=== PATIENT | male | born 1985 | race Caucasian/White ===

== ENCOUNTER 2022-03-31 17:20 | Emergency (ER) | payer BC, SELFPAY ==
--- NOTE | 2022-03-31 17:31 | ED_ITS ---
HPI - Allergic Reaction General Chief complaint: Allergic Reaction Stated complaint: ALLERGIC REACTION Time Seen by Provider: 03/31/22 17:31 Source: patient and EMS Mode of arrival: EMS Limitations: no limitations History of Present Illness HPI narrative: 37-year-old male with history of anaphylaxis to bee stings presents after bee sting which occurred approximately 45 minutes ago to his left lower leg. Patient tells me he went inside immediately and called EMS. He did not use his EpiPen. He received 50 mg of Benadryl and 125 mg of Solu-Medrol prior to arrival. Patient reports some discomfort to the left lower leg but denies any generalized hives, no difficulty breathing or cough, no tongue or lip swelling, abdominal cramping, vomiting, diarrhea. Related Data Allergies Allergy/AdvReac Type Severity Reaction Status Date / Time No Known Allergies Allergy Unverified 04/24/20 17:45 Review of Systems Review of Systems: Yes all other systems are reviewed and are negative Constitutional: Constitutional: Reports no additional constitutional complaints, Denies body ache(s), Denies chills, Denies fever(s), Denies headache(s) and Denies weakness Eyes: Eyes: Reports no additional eye complaints and Denies change in vision ENT: Reports system reviewed and no additional complaints, except as documented, Denies dizziness, Denies headache(s), Denies nasal congestion, Denies nasal discharge and Denies neck pain Cardiovascular: Cardiovascular: Reports no additional cardiovascular complaints, Denies chest pain, Denies leg edema and Denies dyspnea Respiratory: Respiratory: Reports no additional respiratory complaints, Denies cough and Denies dyspnea Gastrointestinal: Gastrointestinal: Reports no additional gastrointestinal complaints, Denies abdominal pain, Denies diarrhea, Denies nausea and Denies vomiting Genitourinary: Genitourinary: Denies urinary incontinence Musculoskeletal: Musculoskeletal: Reports no additional musculoskeletal complaints, Denies back pain, Denies arthralgias, Denies joint swelling, Denies neck pain, Denies numbness and Denies tingling Integumentary/Breasts: Skin/Breast: Reports system reviewed and no additional complaints, except as docu, Reports swelling, Reports erythema and Denies rash Neurologic: Reports system reviewed and no additional complaints, except as documented, Denies dizziness, Denies headache(s), Denies numbness, Denies tingling and Denies weakness PMF Past Medical History Attestation statement: The following information was validated with the patient. Source: old records reviewed and nursing notes reviewed Social History Social History Advance Directives: No Advance Directives Information Provided: No Physical Exam ED Vital Signs: Vital Signs - 24 hr 03/31/22 17:38 03/31/22 18:39 Temperature 98.4 F Pulse Rate 81 73 Respiratory Rate 16 17 Blood Pressure 145/95 H 142/94 H Pulse Oximetry 96 94 Oxygen Delivery Method Room Air Room Air BMI result Body Mass Index 36.0 Const General: cooperative, healthy appearing, comfortable and no acute distress Orientation/consciousness: patient oriented x3 Limitations: no limitations HENMT Head: Yes normal to inspection Ears: hearing grossly normal bilaterally Eyes General: appearance normal, both eyes and all related structures Pupils: Equal, round and reactive pupils present Neck Other: No stridor Neck: Yes normal visual inspection Chest Chest palpation & inspection: normal inspection of the chest Resp Effort & Inspection: normal respiratory effort Auscultation: clear to auscultation bilaterally Cardio Rate: regular rate Rhythm: regular rhythm Peripheral pulses: Peripheral pulses 2+ throughout GI Inspection: Yes normal to inspection Skin General skin exam: no rashes or lesions noted Neuro General: patient oriented x3 and moves all extremities Cranial nerves: Yes Equal, round and reactive pupils present Cognition (Neuro): normal cognition Gait exam (Neuro): Normal gait present Extrem Ankle/foot/toe images: 1. +bee sting Course Course Course Narrative: 1819-patient reports some increased swelling and redness to the sting site over his left lower leg and some raised area of hives over the left forearm. Will give famotidine IV. Patient already received max dose Solu-Medrol and benadryl. No angioedema or airway complaints. Will continue to monitor Reevaluation(s) Reevaluation #1: 1920-patient feels improved. Will continue to monitor Reevaluation #2: 2130-patient was monitored in our emergency room for 4 hours with no change in symptoms. Plan for discharge home. He has an epi pen at home which she can use as needed. Reviewed worrisome signs and symptoms of when to return to the emergency department. Comfortable discharge home. MDM - Allergic Reaction MDM Narrative Medical decision making narrative: 37-year-old male with history of anaphylaxis to bee stings presents for a pacing the left lower leg which happened 45 minutes prior to arrival. Patient does have an EpiPen but he did not give it. He did receive Benadryl and Solu-Medrol from EMS. He has no systemic signs or symptoms concerning for allergic re action. Will monitor for brief time. Differential Diagnosis Differential diagnosis: Likely allergic reaction Medical Records Attestation: I reviewed the patient's medical records. Lab Data Attestation: I reviewed the patient's lab results. Discharge Plan Discharge Clinical Impression: Allergic reaction Patient Disposition: Home, Self-Care Instructions: General Allergic Reaction (ED) Referrals: Morris Jernigan MD [Primary Care Provider] - 1 week (as needed)
[2022-03-31 17:37] VITALS: BP 145/95; PULSE 84; O2SAT 96
[2022-03-31 17:38] VITALS: BP 145/95; PULSE 81; RESP 16; TEMP 36.9; O2SAT 96; BMI 36.0
[2022-03-31] MEDS: Famotidine/PF 20 MG/2 ML VIAL 40 MG IVPUSH (18:36)
[2022-03-31 18:39] VITALS: BP 142/94; PULSE 73; RESP 17; O2SAT 94
== END 2022-03-31 21:35 | disposition home or self-care (01) ==
PROVIDERS: Emergency Provider Internal Medicine; PCP Pediatrics
DX: L50.0 Allergic urticaria (principal)
CPT/HCPCS: 96374; 99282; 99284